=== PATIENT | male | born 1960 | race Caucasian/White ===

== ENCOUNTER 2022-08-28 08:42 | Outpatient (CLI) | payer OTHER, SELFPAY ==
--- OUTSIDE RECORDS SUMMARY | 2022-08-28 09:03 | XMS_ITS | Clinical Summary ---
:1960 Author Organization [employer] [facility] [place] [address] Care Team Providers Name Role Phone Moe Jiang MD Primary Care Provider Allergies No known active allergies Medications Medication Sig Dispensed Refills Start Date End Date Status atorvastatin Take 1 tablet by 0 06/25/2016 Active (LIPITOR) 20 mg mouth once daily. tablet sildenafil citrate Take 1 tablet by 0 06/25/2016 Active (VIAGRA) 100 mg mouth once daily if tablet needed for Erectile Dysfunction. Take 30min to 4 hours before sexual activity. Max 100mg/24hr. acetaminophen Take 1 tablet by 0 06/25/2016 Active (TYLENOL EXTRA mouth every 6 hours STRGTH) 500 mg tablet if needed. Max acetaminophen dose: 4000mg in 24 hrs. lisinopril (PRINIVIL; Take 1 tablet by 3 07/14/2018 Active ZESTRIL) 40 mg tablet mouth once daily. chlorthalidone Take 1 tablet by 3 07/14/2018 Active (HYGROTON) 25 mg mouth once daily. tablet Active Problems Problem Noted Date Sensorineural hearing loss, bilateral 11/25/2018 Immunizations Name Administration Dates Next Due Influenza, IIV4 08/30/2016 Family History Medical History Relation Name Comments Heart attack Father Heart attack Mother Relation Name Status Comments Father Mother Social History Tobacco Use Types Packs/Day Years Used Date Smoking Tobacco: Never Smokeless Tobacco: Never Tobacco Cessation: Counseling Given: Yes Alcohol Use Standard Drinks/Week Comments No 0 (1 standard drink = 0.6 oz pure alcoho l) Sex Assigned at Date Recorded Not on file Obstetrics History Last Filed Vital Signs Vital Sign Reading Time Taken Comments Blood Pressure 122/74 11/20/2018 10:27 AM LIQUID SUGAR MELTER Pulse 64 11/20/2018 10:27 AM LIQUID SUGAR MELTER Temperature 36.7 ??C (98 ??F) 11/29/2016 2:17 PM CDT Respiratory Rate - - Oxygen Saturation 96% 11/29/2016 2:17 PM CDT Inhaled Oxygen Concentration - - Weight 125.6 kg (277 lb) 11/20/2018 10:27 AM LIQUID SUGAR MELTER Height 186.2 cm (6' 1.3) 06/25/2016 9:49 AM CDT Body Mass Index 36.25 06/25/2016 9:49 AM CDT Plan of Treatment Health Maintenance Due Date Last Done Comments Tdap 1969 Depression screening for age 12+ 1970 HIV for age 15-65 1973 Hepatitis C screening for age 18-79 1976 Tetanus booster 1978 Colonoscopy through age 75 2003 Lipids for age 45-75 2003 Zoster (shingles) series for age 50+ (1 of 2008 2) BMI (ht and wt on same day) for age 18+ 06/25/2017 06/25/20 16 COVID-19 vaccine series (3 - Booster for 02/24/2021 021, 12/09/2020 Pfizer series) Influenza for age 50-64 05/17/2022 08/30/2016 Results Not on filefrom Last 3 Months Insurance Payer Benefit Plan Subscriber ID Effective Dates Phone Address Type / Group WC WORKERS COMP WC [employer] [id number] 2020-Prese [phone] [address] [place] [address] [id number] 2018-Presen [address] [place] [address] Roddy Rod Workers Comp Self [id number] (Home) [place] [address] Care Teams Medical/Surgery Registered Nurse Relationship Specialty Start Date End Date Moe Jiang MD PCP - General Emergency Medicine 05/25/161999 [place] [address]
[2022-08-28 13:43] LABS: Chloride* 102 mmol/L (96-114); Sodium* 139 mmol/L (135-149)
[2022-08-28 13:46] LABS: Blood Urea Nitrogen* 20 mg/dL (7-30); Carbon Dioxide* 29 mmol/L (20-32); Cholesterol* 185 mg/dL (90-199); Estimated Glomerular Filt Rate 84 ml/min; Glucose* 99 mg/dL (60-115)
[2022-08-28 13:47] LABS: Calcium* 10.1 mg/dL (8.4-10.6); HDL Cholesterol* 57 mg/dL (>=40); LDL Cholesterol Calculated 94 mg/dL (<100); Triglycerides* 169 mg/dL (40-149)
== END 2022-08-28 08:43 | disposition home or self-care (01) ==
PROVIDERS: PCP Family Medicine; Visit Provider Family Medicine
DX: Z00.00 Encounter for general adult medical examination without abnormal findings (principal); I10 Essential (primary) hypertension; E78.5 Hyperlipidemia, unspecified; E55.9 Vitamin D deficiency, unspecified; Z12.5 Encounter for screening for malignant neoplasm of prostate
CPT/HCPCS: 80048; 80061; 84153

== ENCOUNTER 2023-11-29 09:45 | Outpatient (CLI) | payer OTHER, SELFPAY | END 2023-11-29 09:46 | disposition home or self-care (01) | PROVIDERS: PCP Family Medicine; Visit Provider Family Medicine | DX: E78.2 Mixed hyperlipidemia (principal); Z12.5 Encounter for screening for malignant neoplasm of prostate | CPT/HCPCS: 80048; 80061; G0103 ==

== ENCOUNTER 2024-06-08 06:24 | Outpatient (CLI) | payer OTHER, SELFPAY ==
--- OUTSIDE RECORDS SUMMARY | 2024-06-08 06:29 | XMS_ITS | Clinical Summary ---
Author Organization [employer] [facility] Address [place], [place] [address] Care Team Providers Care Irrigation Teacher Name Role Phone Moe Jiang MD Primary Care Provider Allergies No known active allergies Medications Medication Sig Dispensed Refills Start Date End Date Status atorvastatin (LIPITOR) 20 mg tablet Take 1 tablet by mouth once daily. 0 06/25/2016 Active sildenafil citrate (VIAGRA) 100 mg tablet Take 1 tablet by mouth once daily if needed for Erectile Dysfunction. Take 30min to 4 hours before sexual activity. Max 100mg/24hr. 0 06/25/2016 Active acetaminophen (TYLENOL EXTRA STRGTH) 500 mg tablet Take 1 tablet by mouth every 6 hours if needed. Max acetaminophen dose: 4000mg in 24 hrs. 0 06/25/2016 Active lisinopril (PRINIVIL; ZESTRIL) 40 mg tablet Take 1 tablet by mouth once daily. 3 07/14/2018 Active chlorthalidone (HYGROTON) 25 mg tablet Take 1 tablet by mouth once daily. 3 07/14/2018 Active Active Problems Problem Noted Date Diagnosed Date Sensorineural hearing loss, bilateral 11/25/2018 Immunizations Name Administration Dates Next Due Influenza, IIV4 08/30/2016 Family History Medical History Relation Name Comments Heart attack Father Heart attack Mother Relation Name Status Comments Father Mother Social History Tobacco Use Types Packs/Day Years Used Date Smoking Tobacco: Never Smokeless Tobacco: Never Tobacco Cessation:Counseling Given: Yes Alcohol Use Standard Drinks/Week Comments No 0 (1 standard drink = 0.6 oz pur e alcohol) Sex and Gender Information Value Date Recorded Sex Assigned at Not on file Gender Identity Not on file Sexual Orientation Not on file Obstetrics History Last Filed Vital Signs Vital Sign Reading Time Taken Comments Blood Pressure 122/74 11/20/2018 10:27 AM HARBOR PILOT Pulse 64 11/20/2018 10:27 AM HARBOR PILOT Temperature 36.7 ??C (98 ??F) 11/29/2016 2:17 PM CDT Respiratory Rate - - Oxygen Saturation 96% 11/29/2016 2:17 PM CDT Inhaled Oxygen Concentration - - Weight 125.6 kg (277 lb) 11/20/2018 10:27 AM HARBOR PILOT Height 186.2 cm (6' 1.3) 06/25/2016 9:49 [...] (shingles) series for age 50+ (1 of 2) 2008 BMI (ht and wt on same day) for age 18+ 06/25/2017 1 Pneumococcal series for age 65+ (1 of 1 - PCV) 2023 COVID-19 vaccine series (2022-24 season) 2024 12/30/2020, 12/09/2020 Influenza for age 65+ 05/17/2024 08/30/2016 Care Teams Irrigation Teacher Relationship Specialty Start Date End Date Moe Jiang MD [address] [place] [id number] PCP - General Emergency Medicine 05/25/16
--- OUTSIDE RECORDS SUMMARY | 2024-06-08 06:29 | XMS_ITS | Data Portability ---
Author Organization [place] - [facility], [facility] Address [address] [place] [address] Care Team Providers Care Claim Manager Name Role Phone RAD HAIR Primary Care Provider Assessment No assessment recorded. Plan of Treatment Reminders Order Date Submit Date Provider Last Modified By Organization Details Last Modified Time Details Appointments None recorded . Lab None recorded . Referral None recorded . Procedures bladder scan (PROC) 2022 023 [facility], [address], [address], [place], [address], 10:07:26 Surgeries None recorded . Imaging None recorded . Medication Orders levoflox acin 500 mg tablet 2022 023 CAT[id number], [address], [address], 10:31:37 Gentamic in 80mg/2ml 2022 023 [email or web address] [id number], [address], [address], 10:57:10 Patient TargetsNo targets recorded. Patient Instructions Encounter Date Encounter Id Patient Instructions Last Modified By Organization Details Last Modified Time 10/30/2022 [id number] will set up for TRUS biopsy in [place] office. ALEXANDRA discussed. levaquin rx sent. [email or web address] Not available 10/30/2022 10:30:59 Reason for Referral None Reported. Results Created Date Observation Date Name Description Value Unit Range Abnormal Flag Note LastModifiedBy Organization Detail LastModifiedTime 10/30/1910/30/2022 bladd er scan (PROC ) Volume (in mL) 2ml Not Available [facility] [address], [place], [address], 10/30/2022 10:07:19 11/01/19 23 10/30/2022 bladd er scan (PROC ) No observ ation record ed. BARCODE Not Available 2022 15:05:59 12/04/19 23 12/03/2022 US, prost ate No observ ation record ed. BARCODE Not Available 2022 18:18:58 Result Notes None recorded. Problems Name Problem SNOMED Code Status Onset Date Resolution Date Notes Provider Name and Address Organization Details Recorded Time Prostate specific antigen above reference range [id number] Active 023 Santi Lange MD [address] [place] [address],[address], [place], [address], [facility] 3 10:26:04 Problem Notes None recorded. Procedures Surgical History Date Name Laterality Status Provider Name and Address Organization Details Recorded Time 3 Prostate Biopsy Procedure completed Santi Lange MD [address] [place] [address],[address], [place], [address], [facility] 12/03/2022 10:25:56 3 Gentamicin Injection completed Santi Lange MD [address] [place] [address],[address], [place], [address], [facility] 12/03/2022 10:26:58 3 Bladder Scan completed Shayla Hahn [facility] 10/30/2022 10:07:12 Imaging Results Imaging Date Name Status LastModified by Organiz ation Details LastModified Time 10/30/2022 bladder scan (PROC) completed BARCODE Information not available 11/01/2022 15:05:59 12/03/2022 US, prostate completed BARCODE Information not available 12/03/2022 18:18:58 Procedure Notes None recorded. Medical Equipment None Reported. Allergies No known drug allergies Medications Name Sig Start Date Stop Date Status Note LastModified by Organization Details LastModified Time Gentamicin 80mg/2ml Inject 2ml into the Right buttock 2022 active Not Available Not Available Not Avai lable atorvastatin 20 mg tablet TAKE ONE TABLET BY MOUTH ONE TIME DAILY AT BEDTIME active Not Available Not Available No t Available tizanidine 4 mg tablet TAKE 1/2 TO 1 TABLETS BY MOUTH EVERY EIGHT HOURS NEEDED active Not Available Not Available No t Available chlorthalidone 25 mg tablet TAKE ONE TABLET BY MOUTH ONE TIME DAILY active Not Available Not Available No t Available tramadol 50 mg tablet TAKE 1 TO 2 TABLETS BY MOUTH EVERY 6 HOURS NEEDED active Not Available Not Available No t Available levofloxacin 500 mg tablet TAKE ONE TABLET BY MOUTH EVERY 24 HOURS FOR 3 DAYS. start the day before biopsy active Not Available Not Available No t Available lisinopril 40 mg tablet TAKE ONE TABLET (40mg) BY MOUTH ONE TIME DAILY active Not Available Not Available No t Available finasteride 5 mg tablet TAKE ONE TABLET BY MOUTH ONE TIME DAILY active Not Available Not Available No t Available Vitals Date Recorded Body height Body mass index (BMI) Body weight Provider Name and Address Organization Details Last Updated DateTime 10/30/2022 187.96 cm 35.3 kg/m2 107799.9 g Shayla Hahn [facility] 10/30/2022 10:06:30 Social History Question Answer Notes LastModified by Organizat ion Details LastModified Time Tobacco Smoking Status Never Smoker Shayla Hahn [facility] 10/30/2022 10:06:52 What Is Your Level Of Alcohol Consumption? Moderate Information not available 10/30/2022 What Is Your Level Of Caffeine Consumption? Moderate Information not available 10/30/2022 What Was The Date Of Your Most Recent Tobacco Screening? 10/30/2022 Information not available 10/30/2022 Sex: Unknown Functional Status None recorded. Mental Status None recorded. Family History Nothing Reported. Medical History Condition Response Other N High Blood Pressure Y Kidney Stones N Lung Disease N Depression N GERD/Acid Reflux N Sexually Transmitted Infection N Cancer N High Cholesterol Y Diabetes N Bleeding Disorder N Heart Disease N Past Encounters Encounter ID Performer Location Encounter Start Date Encounter Closed Date Diagnosis/Indication Diagnosis SNOMED-CT Code Diagnosis ICD10 Code [id number] Santi Lange MD [facility] [address] [place] [address] 10/30/2022 09:53:23 11/02/2022 16:42:01 Prostate specific antigen above reference range 900964745 R97.20 [id number] Santi Lange MD [facility] [address] [place] [address] 12/03/2022 09:14:21 12/06/2022 13:41:21 Prostate specific antigen above reference range 342579398 R97.20 [id number] Santi Lange MD [facility] [address] [place] [address] 12/03/2022 09:14:38 12/07/2022 03:53:29 Health Concerns Section Related Observation LastModified by Organization Detai ls LastModified Time None Recorded Concern Status LastModified by Organization Details LastModified Time None Recorded Advance Directives Directive None Recorded Payers Encounter Date Sequence Insurance Name Policy Number Policy Sidhu Covered Member ID Sidhu Member ID Guarantor Name 10/30/2022 1 [facility] [id number] Roddy K Bisping [id number] Roddy K Bisping 12/03/2022 1 [facility] [id number] Roddy K Bisping [id number] Roddy K Bisping 12/03/2022 1 [facility] [id number] Roddy K Bisping [id number] Roddy K Bisping Notes Date Note Type Note Provider Name and Address Organization Details Recorded Time 10/30/2022 text/html HPI Notes: sent for evaluation of elevated PSA. was 3.08 in March/2020 and up to 10.7 in August 2022. voiding OK, no heme/dysuria/UTI. PVR 2ml today. Father had CaP in his 70's, had RRP and did well after that. Santi Lange MD [address] [place] [address],[address] [place] [address], [address], [facility] 10/30/2022 10:34:17 12/03/2022 text/html HPI Notes: here for trus-bx today Santi Lange MD [address] [place] [address],[address], [place], [address], [facility] 12/06/2022 09:03:02
--- NOTE | 2024-06-08 07:52 | W.ANESCHARGE ---
Anesthesia Charges Start Date/Time Anesthesia Start Date: 06/08/24 Anesthesia Start Time: 07:18 Stop Date/Time Anesthesia Stop Date: 06/08/24 Anesthesia Stop Time: 07:44
--- NOTE | 2024-06-08 12:03 | W.ANESCHARGE ---
Anesthesia Charges Start Date/Time Anesthesia Start Date: 06/08/24 Anesthesia Start Time: 07:18 Stop Date/Time Anesthesia Stop Date: 06/08/24 Anesthesia Stop Time: 07:44
== END 2024-06-08 06:25 | disposition home or self-care (01) ==
PROVIDERS: PCP Family Medicine; Visit Provider Internal Medicine
DX: Z12.11 Encounter for screening for malignant neoplasm of colon (principal)
CPT/HCPCS: 00811; 00812; 45378; J2704

== ENCOUNTER 2025-03-03 13:49 | Outpatient (CLI) | payer OTHER, SELFPAY | END 2025-03-03 13:50 | disposition home or self-care (01) | PROVIDERS: PCP Family Medicine; Visit Provider Family Medicine | DX: I10 Essential (primary) hypertension (principal); E78.5 Hyperlipidemia, unspecified; Z12.5 Encounter for screening for malignant neoplasm of prostate | CPT/HCPCS: 80048; 80061; G0103 ==